=== PATIENT | female | born 1995 | race Hispanic/Latino ===

== ENCOUNTER 2018-11-04 22:20 | Emergency (ER) | payer OTHER ==
[2018-11-04] MEDS ORDERED: ACETAMINOPHEN 325 MG TAB ONE (23:11)
== END 2018-11-04 23:15 | disposition home or self-care (01) ==
LOC: EDH 22:20
DX: S60.221A Contusion of right hand, initial encounter (principal); Z88.0 Allergy status to penicillin; Z90.49 Acquired absence of other specified parts of digestive tract; W22.01XA Walked into wall, initial encounter; Y93.89 Activity, other specified; Y92.89 Other specified places as the place of occurrence of the external cause; Y99.8 Other external cause status
CPT/HCPCS: 73130

== ENCOUNTER 2021-03-02 13:55 | Emergency (ER) | payer SELFPAY ==
[2021-03-02] MEDS ORDERED: KETOROLAC 60 MG VIAL (30MG/ML) ONE (14:10)
== END 2021-03-02 14:51 | disposition home or self-care (01) ==
LOC: EDH 13:55
DX: S60.221A Contusion of right hand, initial encounter (principal); Z90.49 Acquired absence of other specified parts of digestive tract; Z72.0 Tobacco use; W22.8XXA Striking against or struck by other objects, initial encounter; Y93.89 Activity, other specified; Y92.89 Other specified places as the place of occurrence of the external cause; Y99.8 Other external cause status
CPT/HCPCS: 73130; 96372; 99283; J1885